=== PATIENT | male | born 1965 | race African-American/Black ===

== ENCOUNTER → 2022-05-24 15:22 | Outpatient (BNVA) | payer OTHER, SELFPAY | PROVIDERS: PCP Internal Medicine; Visit Provider Urology | DX: R97.20 Elevated prostate specific antigen [PSA] (principal) | CPT/HCPCS: 51798; 99202 ==

== ENCOUNTER 2022-06-20 06:26 | Day surgery (SDC) | payer OTHER, SELFPAY ==
[2022-06-15 10:22] VITALS: BMI 25.9
--- NOTE | 2022-06-19 10:21 | P.CONAN_ITS ---
Documented by User: Joy Bowles NP 06/19/22 10:32 HPI - Anesthesia Eval Consult details Narrative: 57yo M for Prostate Needle Biopsy PCP cleared Hx of combative with emergence PMFSH Active Problems Active Problems: All Active Problems (Updated 06/15/22 @ 10:22 by Mallory Sharpe RN) Elevated PSA (Acute) Past Medical History Medical History (Updated 06/15/22 @ 10:22 by Mallory Sharpe RN) BPH (benign prostatic hyperplasia) CAD (coronary artery disease) Chronic renal insufficiency COPD (chronic obstructive pulmonary disease) COPD exacerbation Depression Diabetes Elevated cholesterol History of COVID-19 HTN (hypertension) Low back pain Surgical History Surgical History (Updated 06/15/22 @ 10:22 by Mallory Sharpe RN) H/O colonoscopy History of surgery on lower extremity Hx laparoscopic cholecystectomy Hx of cardiac catheterization Hx of repair of rotator cuff Social History Social History (Updated 06/15/22 @ 09:39 by Mallory Sharpe RN) Are you a primary managed care coordinator to a significant other at home: No Do you presently have visiting nurse or other home services: No Patient Tobacco Use Status: Current everyday Tobacco user Tobacco use type: Cigarette Cigarette Packs Per Day: 1 Cigarettes Per Day: 20.0 Years Smoked: 39 Use of substances other than those prescribed or required for medical reasons: No Have you been hit, kicked, punched, or otherwise hurt by someone within the past year? If so, by whom?: No Are you DNR?: No Advance Directives: No Advance Directives Information Provided: Yes (brochure mailed) Advance Directives on File: No Recently lost weight without trying: No Eating poorly because of decreased appetite: No Nutrition Risks: No Nutritional Risk Meds Allergies Allergy/AdvReac Type Severity Reaction Status Date / Time No Known Allergies Allergy Verified 05/24/22 15:30 Home Medications Medication Instructions Recorded Confirmed Last Taken Type albuterol sulfate 2.5 mg/3 mL 2.5 mg inhalation Q6H PRN wheezing 05/24/22 06/15/22 Unknown History (0.083 %) solution for nebulization albuterol sulfate 90 mcg/actuation 2 puff inhalation QID PRN wheezing 05/24/22 06/15/22 Unknown History aerosol inhaler (Ventolin HFA) amlodipine 2.5 mg tablet 2.5 mg PO DAILY 05/24/22 06/15/22 06/20/22 History aspirin 81 mg tablet,delayed 81 mg PO DAILY 05/24/22 06/15/22 Unknown History release atorvastatin 80 mg tablet 80 mg PO DAILY 05/24/22 06/15/22 Unknown History budesonide-formoterol HFA 160 2 puff inhalation BID 05/24/22 06/15/22 06/20/22 History mcg-4.5 mcg/actuation aerosol inhaler (Symbicort) gabapentin 300 mg capsule 600 mg PO TID 05/24/22 06/15/22 Unknown History mirtazapine 7.5 mg tablet 7.5 mg PO BEDTIME 05/24/22 06/15/22 Unknown History lisinopril 5 mg tablet 1 tab PO DAILY 06/15/22 06/15/22 Unknown History tiotropium bromide 18 mcg capsule 1 cap inhalation DAILY 06/15/22 06/15/22 06/20/22 History with inhalation device (Spiriva with HandiHaler) Exam Exam Date and Time: June 19, 2022 1021 Height,Weight and Vital Signs: Height 5 ft 8 in Weight 77.337 kg Narrative Narrative: Cardiac cath 2019 showed non-obstructive CAD Exercise stress 2019 Nml ETT Nml Exercise physiology No EKG evidence of ischemia ECHO 2019 LV size is nml LV wall thickness is nml. LV systolic function is severely reduced. LVEF 30-35. Severe global hypokinesis of LV with regional variation > in the entire inferior and inferolateral wall. No doppler evidence of increased filling pressures. RV is nml in size and function. Assessment and Plan Assessment Anesthesia Assessment: Chart Reviewed Documented by User: Clarissa Skelton MD 06/20/22 08:46 [facility] Past Medical History Medical History (Updated 06/15/22 @ 10:22 by Mallory Sharpe RN) BPH (benign prostatic hyperplasia) CAD (coronary artery disease) Chronic renal insufficiency COPD (chronic obstructive pulmonary disease) COPD exacerbation Depression Diabetes Elevated cholesterol History of COVID-19 HTN (hypertension) Low back pain Family History Family history of problems with anesthesia: No Surgical History Surgical History (Updated 06/15/22 @ 10:22 by Mallory Sharpe RN) H/O colonoscopy History of surgery on lower extremity Hx laparoscopic cholecystectomy Hx of cardiac catheterization Hx of repair of rotator cuff History of Problems with Anesthesia: No Social History Social History (Updated 06/15/22 @ 09:39 by Mallory Sharpe RN) Are you a primary managed care coordinator to a significant other at home: No Do you presently have visiting nurse or other home services: No Patient Tobacco Use Status: Current everyday Tobacco user Tobacco use type: Cigarette Cigarette Packs Per Day: 1 Cigarettes Per Day: 20.0 Years Smoked: 39 Use of substances other than those prescribed or required for medical reasons: No Have you been hit, kicked, punched, or otherwise hurt by someone within the past year? If so, by whom?: No Are you DNR?: No Advance Directives: No Advance Directives Information Provided: Yes (brochure mailed) Advance Directives on File: No Recently lost weight without trying: No Eating poorly because of decreased appetite: No Nutrition Risks: No Nutritional Risk Meds Allergies Allergy/AdvReac Type Severity Reaction Status Date / Time No Known Allergies Allergy Verified 05/24/22 15:30 Home Medications Medication Instructions Recorded Confirmed Last Taken Type albuterol sulfate 2.5 mg/3 mL 2.5 mg inhalation Q6H PRN wheezing 05/24/22 06/15/22 Unknown History (0.083 %) solution for nebulization albuterol sulfate 90 mcg/actuation 2 puff inhalation QID PRN wheezing 05/24/22 06/15/22 Unknown History aerosol inhaler (Ventolin HFA) amlodipine 2.5 mg tablet 2.5 mg PO DAILY 05/24/22 06/15/22 06/20/22 History aspirin 81 mg tablet,delayed 81 mg PO DAILY 05/24/22 06/15/22 Unknown History release atorvastatin 80 mg tablet 80 mg PO DAILY 05/24/22 06/15/22 Unknown History budesonide-formoterol HFA 160 2 puff inhalation BID 05/24/22 06/15/22 06/20/22 History mcg-4.5 mcg/actuation aerosol inhaler (Symbicort) gabapentin 300 mg capsule 600 mg PO TID 05/24/22 06/15/22 Unknown History mirtazapine 7.5 mg tablet 7.5 mg PO BEDTIME 05/24/22 06/15/22 Unknown History lisinopril 5 mg tablet 1 tab PO DAILY 06/15/22 06/15/22 Unknown History tiotropium bromide 18 mcg capsule 1 cap inhalation DAILY 06/15/22 06/15/22 06/20/22 History with inhalation device (Spiriva with HandiHaler) Exam Airway Mallampati Class: II TM Dist: >3cm Neck ROM: Full Heart: rr Lungs: cta Assessment and Plan Assessment Anesthesia Assessment: Anesthesia Plan Discussed and Smoking Cess. Discussed Final Anesthetic Review Family History of Problems with Anesthesia: No History of Problems with Anesthesia: No NPO: Yes ASA Class: II Final Preanesthetic Review: No Changes in Pt Med Stat, Meds/Allgs Chart Reviewed, Consent Obtained/Reviewed and Anes Risks/Benef Reviewed Patient Risk: Low Procedure Risk: Low Anesthetic Plan Anesthetic Plan: MAC: Disposition: Standard PACU
--- NOTE | 2022-06-20 06:44 | ECG_ITS ---
Test Reason : hx of cardiac cath preop Blood Pressure : / mmHG Vent. Rate : 096 BPM Atrial Rate : 096 BPM P-R Int : 130 ms QRS Dur : 088 ms QT Int : 372 ms P-R-T Axes : 078 -35 026 degrees QTc Int : 469 ms Sinus rhythm with Premature atrial complexes Possible Left atrial enlargement Left axis deviation Left ventricular hypertrophy ( R in aVL , [place]ack product ) T wave abnormality, consider lateral ischemia Prolonged QT Abnormal ECG No previous ECGs available Referred By: Joy Bowles Electronically Signed By:ANIYA ENGLISH MD
[2022-06-20 07:12] VITALS: BP 140/90; PULSE 96; RESP 16; TEMP 37.1; O2SAT 98
[2022-06-20 07:13] LABS: Hematocrit 47.3 % (42.0-52.0); Hemoglobin 15.6 g/dl (14.0-18.0); Mean Corpuscular Hemoglobin 28.6 pg (27.0-33.0); Mean Corpuscular Volume 86.8 fL (80.0-98.0); Mean Platelet Volume 9.1 fL (9.4-12.4); Platelet Count 337 X10*3/uL (160-400); Red Blood Count 5.45 X10*6/uL (4.60-5.80); Red Cell Distribution Width 14.5 % (11.0-16.0); White Blood Count 10.7 X10*3/uL (4.8-10.8)
[2022-06-20] MEDS: Lactated Ringers 1,000 ML 100 ML IVCONT (07:14)
[2022-06-20 07:27] LABS: Anion Gap 13 (12-20); Blood Urea Nitrogen 11 mg/dL (9-16); Calcium 9.2 mg/dL (8.4-10.2); Carbon Dioxide 26 mmol/L (22-29); Chloride 105 mmol/L (96-108); Creatinine Clr Calc Pharmacy 65.1; Estimated Glomerular Filt Rate > 60; Glucose Fasting 82 mg/dL (60-99); Sodium 140 mmol/L (135-145)
--- NOTE | 2022-06-20 08:06 | MHC.SHP ---
Pre-Procedural Eval Section A Date of Service: 06/20/22 The patient is an INPATIENT: No Section B Chief Complaint: Elevated prostate specific antigen [PSA] Allergies: Allergies Allergy/AdvReac Type Severity Reaction Status Date / Time No Known Allergies Allergy Verified 05/24/22 15:30 Plan Diagnosis/Plan: Unchanged I have reviewed the history and physical and performed a pertinent physical examination on my patient. No changes have occurred unless specified. Transrectal guided prostate biopsy Time Spent With Patient Time: Total time managing care of this patient today ____ minutes.
--- NOTE | 2022-06-20 08:53 | P.OP_ITS ---
Operative Note Operative Note Date of Service: 06/20/22 Narrative: PreOperative Diagnosis:? ? Elevated PSA Post Operative Diagnosis:??Elevated PSA Procedure:?1. Transrectal ultrasound guided biopsy of the prostate 12 core 2. Transrectal ultrasound measurement of prostate 3. Transrectal ultrasound guided pudendal nerve block Surgeon:?Dr Thao Hairston Anesthesia:? MAC, and local Indications for procedure: Elevated PSA Procedure: After informed consent was verified the patient was brought into the procedure room and placed on the procedure table in left lateral position. Patient identity confirmed. Preoperative antibiotics confirmed. Safety pause time-out performed. IV sedation was administered by the anesthesiologist. Digital rectal exam performed, iodine mixed with lubricant jelly 30 cc placed per rectum. Ultrasound probe was placed per rectum. The prostate was visualized. The prostate was measured height 3.07 cm, width 5.16 cm, length 4.47 cm with a volume of 37 mL. There were calcifications noted in the transitional zone And ultrasound guided pudendal nerve block was performed using 7 cc of 1% lidocaine a 12 core biopsy was performed from the left base, left mid, left apex and right base, mid, apex. The ultrasound probe was removed and digital pa lpation of the prostate for 1-2 minutes for hemostasis was performed. The patient tolerated the procedure well. The patient was taken to the recovery room in stable condition. The patient is instructed to complete his antibiotics and to call for any concerns. Complications: None
[2022-06-20 08:54] VITALS: BP 112/77; PULSE 106; RESP 18; TEMP 37.1; O2SAT 94
[2022-06-20 09:09] VITALS: BP 132/95; PULSE 107; RESP 18; TEMP 37; O2SAT 99
== END 2022-06-20 09:52 | disposition home or self-care (01) ==
PROVIDERS: Nurse Practitioner; PCP Internal Medicine; Visit Provider Urology
PROC: (CPT 55700; principal; 2022-06-20 08:00)
DX: C61 Malignant neoplasm of prostate (principal); R97.20 Elevated prostate specific antigen [PSA]; E11.22 Type 2 diabetes mellitus with diabetic chronic kidney disease; I12.9 Hypertensive chronic kidney disease with stage 1 through stage 4 chronic kidney disease, or unspecified chronic kidney disease; N18.2 Chronic kidney disease, stage 2 (mild); I25.10 Atherosclerotic heart disease of native coronary artery without angina pectoris; E78.00 Pure hypercholesterolemia, unspecified; J44.9 Chronic obstructive pulmonary disease, unspecified; Z79.51 Long term (current) use of inhaled steroids; Z79.82 Long term (current) use of aspirin; Z79.899 Other long term (current) drug therapy; F17.210 Nicotine dependence, cigarettes, uncomplicated; Z86.16 Personal history of COVID-19; Z90.49 Acquired absence of other specified parts of digestive tract
CPT/HCPCS: 55700; 36415; 76942; 80048; 85027; 88305; 88344; 93005; J1956; J2250; J2405; J3010

== ENCOUNTER → 2022-06-29 14:56 | Outpatient (BNVA) | payer OTHER, SELFPAY | PROVIDERS: PCP Internal Medicine; Visit Provider Nurse Practitioner Family | DX: C61 Malignant neoplasm of prostate (principal) | CPT/HCPCS: 99212 ==

== ENCOUNTER → 2022-08-28 14:05 | Outpatient (BNVA) | payer OTHER, SELFPAY | PROVIDERS: PCP Internal Medicine; Visit Provider Nurse Practitioner Family | DX: C61 Malignant neoplasm of prostate (principal); R97.20 Elevated prostate specific antigen [PSA] | CPT/HCPCS: 99212 ==